=== PATIENT | female | born 1995 | race Caucasian/White ===

== ENCOUNTER 2018-04-04 16:52 | Emergency (ER) | payer OTHER ==
[~2018-04-04] VITALS: Ht 172.7 cm; Wt 70.3 kg
[2018-04-04] MEDS ORDERED: ONDANSETRON HCL INJ 2 MG/ML VIAL IV STA (18:04)
[2018-04-04] MEDS ORDERED: MORPHINE SULFATE 2 MG/ML SYR IV STA (18:04)
--- NOTE | 2018-04-04 19:55 | Diagnostic Imaging Report ---
EXAM: CT ABD/PEL WITH CONTRAST-HOPD DATE: 04/04/2018 12:00 AM INDICATION: Abdominal pain COMPARISON: None TECHNIQUE: The abdomen and pelvis were scanned using a multidetector helical scanner. Coronal and sagittal reformations were obtained. CT low dose techniques were utilized, as applicable. IV Contrast: 100 ml Isovue 300/370 FINDINGS: LOWER THORAX: No consolidations LIVER/BILIARY: No masses. Mildly internal hepatic biliary ductal dilation, common bile duct measuring 8 mm. GALLBLADDER: Distended gallbladder without visualized radiopaque stones or pericholecystic fluid SPLEEN: Unremarkable PANCREAS: Unremarkable ADRENALS: No nodules KIDNEYS: No suspicious renal masses. No hydronephrosis. Mild bilateral ureterectasis likely related to prominent uterus mass effect/compression. GI TRACT: No wall thickening or evidence of obstruction. Normal appendix. VESSELS: Unremarkable PERITONEUM/RETROPERITONEUM: No free air or fluid LYMPH NODES: No lymphadenopathy REPRODUCTIVE ORGANS/BLADDER: Prominent uterus, nonspecific but can be seen with underlying fibroids or adenomyosis. Unremarkable bladder. SOFT TISSUES: Unremarkable BONES: No suspicious bone lesions. IMPRESSION: Distended gallbladder and moderate biliary ductal dilation. This may be related to a distal obstructing or passed stone. Correlate with bilirubin and consider MRI/MRCP to better assess. Signed by: Dr Jeni Bradley MD on 04/04/2018 7:52 PM
[2018-04-04] MEDS ORDERED: SODIUM CHLORIDE 0.9% 1000ML 1,000 ML IV SCH (20:00)
--- NOTE | 2018-04-04 21:04 | NUR ---
[employer] Tech at the bedside for exam.
--- NOTE | 2018-04-04 21:44 | Diagnostic Imaging Report ---
EXAM: US GALL BLADDER-HOPD DATE: 04/04/2018 12:00 AM INDICATION: , Right upper quadrant pain COMPARISON: None TECHNIQUE: Transverse and longitudinal villegas scale and color doppler sonographic images of the upper abdomen were obtained. FINDINGS: LIVER 16.6 cm in the right midclavicular line. Increased echogenicity, normal contour, no masses. GALLBLADDER Non-shadowing stones or sludge without wall thickening or wall-thickening or pericholecystic fluid. Negative sonographic Beltran's sign. BILE DUCTS Mild intrahepatic biliary ductal dilation better seen on CT.. Common bile duct measures slightly enlarged, 0.7 cm PANCREAS: Visualized portions are normal. RIGHT KIDNEY: 10.8 cm Echogenicity: Normal Collecting System: No hydronephrosis Stones: None Cyst/Mass: None VESSELS: Aorta: Visualized portions are within normal size limits Inferior Vena Cava: Visualized portions are normal Main Portal Vein: 0.7 cm, normal size with hepatopetal flow. FREE FLUID: None IMPRESSION: 1. Non-shadowing gallstone/sludge without evidence of acute cholecystitis. 2. Mild biliary ductal dilation which raises the possibility of passed stone or distal common bile duct stone. 3. Hepatic steatosis. Signed by: Dr Jeni Bradley MD on 04/04/2018 9:40 PM
== END 2018-04-04 22:38 | disposition home or self-care (01) ==
LOC: FSED 16:52
DX: R10.30 Lower abdominal pain, unspecified (principal); N30.90 Cystitis, unspecified without hematuria
CPT/HCPCS: 74177; 76705; 80053; 85025; 87086; 99284; J2270; J2405